=== PATIENT | female | born 2000 | race Caucasian/White ===

== ENCOUNTER 2020-07-13 03:14 | Emergency (ER) | payer OTHER ==
--- NOTE | 2020-07-13 03:15 | ED ---
Psych HPI - General Stated Complaint: mental health Time Seen by Provider: 07/13/20 03:15 Source: RN notes reviewed, old records reviewed Limitations: no limitations - History of Present Illness Initial Comments: This is a 20-year-old female DF for evaluation. Patient presents to ER with PDD and lites or in lieu of imminent manic episode. Patient is known history of drug abuse, patient is [place] interrog[place]. Patient denying current homicidal or suicidal thoughts MD Complaint: other (Patient feels she is about 5. Somatic episode) -: unknown Associated Psychiatric Symptoms: racing thoughts History of same: Yes Quality: getting worse Improves With: none Worsens With: none Context: recent drug abuse Associated Symptoms: denies other symptoms Treatments Prior to Arrival: placed on mental health hold If Self Harm: other (Presents by PD not under petition) - Related Data Allergies Allergy/AdvReac Type Severity Reaction Status Date / Time No Known Allergies Allergy Verified 07/13/20 03:24 Review of Systems ROS Statement: Those systems with pertinent positive or pertinent negative responses have been documented in the HPI. ROS Other: All systems not noted in ROS Statement are negative. General Exam General appearance: alert, in no apparent distress Head exam: Present: atraumatic, normocephalic, normal inspection Eye exam: Present: normal appearance, PERRL, EOMI. Absent: scleral icterus, conjunctival injection, periorbital swelling ENT exam: Present: normal exam, mucous membranes moist Neck exam: Present: normal inspection. Absent: tenderness, meningismus, lymphadenopathy Respiratory exam: Present: normal lung sounds bilaterally. Absent: respiratory distress, wheezes, rales, rhonchi, stridor Cardiovascular Exam: Present: regular rate, normal rhythm, normal heart sounds. Absent: systolic murmur, diastolic murmur, rubs, gallop, clicks GI/Abdominal exam: Present: soft, normal bowel sounds. Absent: distended, tenderness, guarding, rebound, rigid Extremities exam: Present: normal inspection, full ROM, normal capillary refill. Absent: tenderness, pedal edema, joint swelling, calf tenderness Back exam: Present: normal inspection Neurological exam: Present: alert, oriented X3, CN II-XII intact Psychiatric exam: Present: normal affect, normal mood Skin exam: Present: warm, dry, intact, normal color. Absent: rash Course Vital Signs 07/13/20 03:21 Temperature 97 F L Pulse Rate 101 H Respiratory 18 Rate Blood Pressure 163/92 O2 Sat by Pulse 97 Oximetry - Reevaluation(s) Reevaluation #1: 07/13/20 04:38 Medical clear for psychiatric evaluation Reevaluation #2: 07/13/20 05:06 Patient remains without homicidal or suicidal thoughts Medical Decision Making - Medical Decision Making 20 female DF for evaluation, patient is manic episode. Patient has no findings here in the ER not homicidal or suicidal seen by psychiatry and can be discharged Disposition Clinical Impression: Acute psychosis, Drug-induced psychotic disorder Disposition: HOME SELF-CARE Condition: Fair Instructions (If sedation given, give patient instructions): Mood Disorders (ED) Is patient prescribed a controlled substance at d/c from ED?: No Referrals: None,Stated [Primary Care Provider] - 1-2 days
[2020-07-13 03:24] VITALS: BP 163/92; PULSE 101; RESP 18; TEMP 97
== END 2020-07-13 05:20 | disposition home or self-care (01) ==
LOC: EC 03:14
DX: F19.959 Other psychoactive substance use, unspecified with psychoactive substance-induced psychotic disorder, unspecified (principal); F23 Brief psychotic disorder; F30.9 Manic episode, unspecified
CPT/HCPCS: 82075; 99284

== ENCOUNTER 2020-07-13 06:49 | Emergency (ER) | payer OTHER ==
--- NOTE | 2020-07-13 07:14 | ED ---
Psych HPI - General Chief Complaint: Psychiatric Symptoms Stated Complaint: Mental health Time Seen by Provider: 07/13/20 06:53 Source: patient, EMS, RN notes reviewed Mode of arrival: EMS Limitations: no limitations - History of Present Illness Initial Comments: This a 20-year-old female presents emergency department via EMS for psychiatric evaluation. Patient states that she has been off her psychiatric medications for the last 6 months. Patient states that she stopped taking secondary to drug use. Patient states that she was recently evaluated here earlier. Patient was not suicidal at that time. Patient states that she is now suicidal because she wants to be admitted. Patient denies any plan. Patient states that she was recently admitted and discharged for psychiatric evaluation. Patient states that she is from [place] but left there to come or see her family. Patient denies any physical complaints. Patient does admit to prior drug use but denies any drug use other than marijuana currently. Patient offers no other complaints. - Related Data Home Medications Medication Instructions Recorded Confirmed ARIPiprazole [Abilify] 5 mg PO DAILY 07/13/20 07/13/20 Topiramate [Topamax] 50 mg PO BID 07/13/20 07/13/20 cloNIDine HCL [Catapres] 0.1 mg PO DAILY 07/13/20 07/13/20 hydrOXYzine pamoate [Vistaril] 25 mg PO HS 07/13/20 07/13/20 hydrOXYzine pamoate [Vistaril] 50 mg PO Q4H PRN 07/13/20 07/13/20 Allergies Allergy/AdvReac Type Severity Reaction Status Date / Time No Known Allergies Allergy Verified 07/13/20 09:34 Review of Systems ROS Statement: Those systems with pertinent positive or pertinent negative responses have been documented in the HPI. ROS Other: All systems not noted in ROS Statement are negative. Past Medical History Past Medical History: No Reported History History of Any Multi-Drug Resistant Organisms: None Reported Past Surgical History: No Surgical Hx Reported Past Psychological History: Bipolar Smoking Status: Current every day smoker Past Alcohol Use History: None Reported Past Drug Use History: Cocaine, Heroin, Methamphetamine General Exam Limitations: no limitations General appearance: alert, in no apparent distress Head exam: Present: atraumatic, normocephalic, normal inspection Eye exam: Present: normal appearance, PERRL, EOMI. Absent: scleral icterus, conjunctival injection, periorbital swelling ENT exam: Present: normal exam, normal oropharynx, mucous membranes moist Neck exam: Present: normal inspection, full ROM. Absent: tenderness, meningismus, lymphadenopathy Respiratory exam: Present: normal lung sounds bilaterally. Absent: respiratory distress, wheezes, rales, rhonchi, stridor Cardiovascular Exam: Present: regular rate, normal rhythm, normal heart sounds. Absent: systolic murmur, diastolic murmur, rubs, gallop, clicks GI/Abdominal exam: Present: soft, normal bowel sounds. Absent: distended, tenderness, guarding, rebound, rigid Neurological exam: Present: alert, oriented X3 Psychiatric exam: Present: anxious Skin exam: Present: warm, dry, intact, normal color. Absent: rash Course Vital Signs 07/13/20 06:53 Temperature 98.8 F Pulse Rate 75 Respiratory 17 Rate Blood Pressure 143/87 O2 Sat by Pulse 97 Oximetry Medical Decision Making - Medical Decision Making 20 -year-old presents emergency room for significant evaluation evaluated by EPS case discussed with psychiatrist recommends patient be discharged outpatient treatment she has not currently suicidal or homicidal she does have a long history of drug abuse - Lab Data Lab Results 07/13/20 Range/Units 07:15 Urine Opiates Screen Not Detected (NotDetected) Ur Oxycodone Screen Not Detected (NotDetected) Urine Methadone Screen Not Detected (NotDetected) Ur Propoxyphene Screen Not Detected (NotDetected) Ur Barbiturates Screen Not Detected (NotDetected) U Tricyclic Antidepress Not Detected (NotDetected) Ur Phencyclidine Scrn Not Detected (NotDetected) Ur Amphetamines Screen Not Detected (NotDetected) U Methamphetamines Scrn Not Detected (NotDetected) U Benzodiazepines Scrn Not Detected (NotDetected) Urine Cocaine Screen Not Detected (NotDetected) U Marijuana (THC) Screen Detected H (NotDetected) Disposition Clinical Impression: Drug-induced psychotic disorder, Depression Disposition: HOME SELF-CARE Condition: Stable Instructions (If sedation given, give patient instructions): Depression (ED) Additional Instructions: Please return to the Emergency Department if symptoms worsen or any other concerns. Is patient prescribed a controlled substance at d/c from ED?: No Referrals: None,Stated [Primary Care Provider] - 1-2 days Time of Disposition: 12:09
[2020-07-13 07:54] LABS: Amphetamine Screen,Urine Not Detected (NotDetected); Barbiturate Screen,Urine Not Detected (NotDetected); Benzodiazepines Screen,Urine Not Detected (NotDetected); Cocaine Screen,Urine Not Detected (NotDetected); Methadone Screen, Urine Not Detected (NotDetected); Opiate Screen,Urine Not Detected (NotDetected); Oxycodone Screen, Urine Not Detected (NotDetected); Phencyclidine Screen,Urine Not Detected (NotDetected); Tricyclic Antidepressant,Urine Not Detected (NotDetected); Urn Cannabinoid Scrn Detected (NotDetected)
[2020-07-13 12:28] VITALS: BP 130/75; PULSE 62; RESP 18; TEMP 98.1
== END 2020-07-13 12:27 | disposition home or self-care (01) ==
LOC: EC 06:49
DX: F19.959 Other psychoactive substance use, unspecified with psychoactive substance-induced psychotic disorder, unspecified (principal); F32.9 Major depressive disorder, single episode, unspecified; F17.200 Nicotine dependence, unspecified, uncomplicated; Z79.899 Other long term (current) drug therapy
CPT/HCPCS: 80306; 82075; 99284